=== PATIENT | female | born 1970 | race Two or more races ===

== ENCOUNTER 2017-09-03 12:16 | Outpatient (CLI) | payer MEDICARE, MEDICAID ==
[2017-09-03 12:22] VITALS: BP 157/78
== END 2017-09-03 23:59 | disposition home or self-care (01) ==
LOC: MSC 12:16
PROVIDERS: ATTEND Internal Medicine
DX: Z48.89 Encounter for other specified surgical aftercare (principal); E11.22 Type 2 diabetes mellitus with diabetic chronic kidney disease; I13.2 Hypertensive heart and chronic kidney disease with heart failure and with stage 5 chronic kidney disease, or end stage renal disease; I50.9 Heart failure, unspecified; N18.6 End stage renal disease; Z99.2 Dependence on renal dialysis; D63.8 Anemia in other chronic diseases classified elsewhere; K59.09 Other constipation; Z90.49 Acquired absence of other specified parts of digestive tract; N94.89 Other specified conditions associated with female genital organs and menstrual cycle; G89.29 Other chronic pain

== ENCOUNTER 2018-01-05 12:00 | Outpatient (CLI) | payer MEDICARE, MEDICAID | END 2018-01-05 23:59 | disposition home or self-care (01) | LOC: MSC 12:00 | PROVIDERS: ATTEND Anesthesiology | DX: G89.4 Chronic pain syndrome (principal); R10.2 Pelvic and perineal pain; M54.5 Low back pain; I50.9 Heart failure, unspecified; N18.6 End stage renal disease; Z99.2 Dependence on renal dialysis; I25.10 Atherosclerotic heart disease of native coronary artery without angina pectoris; J90 Pleural effusion, not elsewhere classified; Z98.890 Other specified postprocedural states ==

== ENCOUNTER 2018-01-26 13:00 | Outpatient (CLI) | payer MEDICARE, MEDICAID | END 2018-01-26 23:59 | disposition home or self-care (01) | LOC: MSC 13:00 | PROVIDERS: ATTEND Anesthesiology | DX: G89.4 Chronic pain syndrome (principal); M54.5 Low back pain; R10.2 Pelvic and perineal pain; I50.9 Heart failure, unspecified; I25.10 Atherosclerotic heart disease of native coronary artery without angina pectoris; N18.6 End stage renal disease; Z99.2 Dependence on renal dialysis; Z98.890 Other specified postprocedural states ==

== ENCOUNTER 2018-04-06 11:20 | Outpatient (CLI) | payer MEDICARE, MEDICAID | END 2018-04-06 23:59 | disposition home or self-care (01) | LOC: MSC 11:20 | PROVIDERS: ATTEND Anesthesiology | DX: G89.4 Chronic pain syndrome (principal); M54.5 Low back pain; R10.2 Pelvic and perineal pain; T82.590S Other mechanical complication of surgically created arteriovenous fistula, sequela; N18.6 End stage renal disease; Z99.2 Dependence on renal dialysis; Z79.891 Long term (current) use of opiate analgesic ==

== ENCOUNTER 2018-05-25 12:20 | Outpatient (CLI) | payer MEDICARE, MEDICAID ==
[2018-05-25] MEDS ORDERED: NIFE60TA69 PO (12:29)
[2018-05-25] MEDS ORDERED: INSU100V11 SQ (12:29)
[2018-05-25] MEDS ORDERED: METO25TA20 PO (12:29)
[2018-05-25] MEDS ORDERED: HYDR100T27 PO (12:29)
[2018-05-25] MEDS ORDERED: SEVE800T8 PO (12:29)
[2018-05-25] MEDS ORDERED: GLIM1TAB PO (12:29)
[2018-05-25] MEDS ORDERED: FURO-144 PO (12:29)
[2018-05-25] MEDS ORDERED: ACET-868 PO (12:29)
[2018-05-25] MEDS ORDERED: ASPI-1169 PO (12:29)
[2018-05-25] MEDS ORDERED: HYDR-548 PO (12:29)
[2018-05-25] MEDS ORDERED: DORZ10DR13 EACHEYE (12:30)
[2018-05-25 12:35] VITALS: BP 127/82
== END 2018-05-25 23:59 | disposition home or self-care (01) ==
LOC: MSC 12:20
PROVIDERS: ATTEND Internal Medicine
DX: Z51.89 Encounter for other specified aftercare (principal); D53.9 Nutritional anemia, unspecified; K29.80 Duodenitis without bleeding; K29.70 Gastritis, unspecified, without bleeding; Z86.010 Personal history of colon polyps; E11.22 Type 2 diabetes mellitus with diabetic chronic kidney disease; I13.2 Hypertensive heart and chronic kidney disease with heart failure and with stage 5 chronic kidney disease, or end stage renal disease; I50.32 Chronic diastolic (congestive) heart failure; N18.6 End stage renal disease; Z99.2 Dependence on renal dialysis; Z79.82 Long term (current) use of aspirin; Z79.899 Other long term (current) drug therapy; K59.09 Other constipation; Z90.49 Acquired absence of other specified parts of digestive tract; G89.28 Other chronic postprocedural pain; R10.30 Lower abdominal pain, unspecified; K66.0 Peritoneal adhesions (postprocedural) (postinfection)

== ENCOUNTER 2018-05-25 14:05 | Outpatient (CLI) | payer MEDICARE, MEDICAID ==
[~2018-05-25 14:05] MED LIST: ACET-868 PO; ASPI-1169 PO; DORZ10DR13 EACHEYE; FURO-144 PO; GLIM1TAB PO; HYDR-548 PO; HYDR100T27 PO; INSU100V11 SQ; METO25TA20 PO; NIFE60TA69 PO; SEVE800T8 PO
== END 2018-05-25 23:59 | disposition home or self-care (01) ==
LOC: MSC 14:05
PROVIDERS: ATTEND Anesthesiology
DX: G89.4 Chronic pain syndrome (principal); M54.5 Low back pain; R10.2 Pelvic and perineal pain; T82.590S Other mechanical complication of surgically created arteriovenous fistula, sequela; N18.6 End stage renal disease; Z99.2 Dependence on renal dialysis; I50.9 Heart failure, unspecified; Z79.891 Long term (current) use of opiate analgesic

== ENCOUNTER → 2018-06-22 | Outpatient (CLI) | payer MEDICARE, MEDICAID | END | disposition home or self-care (01) | LOC: MSC 10:45 | PROVIDERS: ATTEND Anesthesiology | DX: M54.5 Low back pain (principal); G89.4 Chronic pain syndrome; R10.2 Pelvic and perineal pain; M25.50 Pain in unspecified joint; N18.6 End stage renal disease; Z99.2 Dependence on renal dialysis; T82.590S Other mechanical complication of surgically created arteriovenous fistula, sequela; I25.10 Atherosclerotic heart disease of native coronary artery without angina pectoris; I50.9 Heart failure, unspecified; Z79.891 Long term (current) use of opiate analgesic ==

== ENCOUNTER 2018-09-14 13:00 | Outpatient (CLI) | payer MEDICARE, MEDICAID ==
[~2018-09-14 13:00] MED LIST changes: +HYDR-4354 PO; -HYDR-548 PO
== END 2018-09-14 23:59 | disposition home or self-care (01) ==
LOC: MSC 13:00
PROVIDERS: ATTEND Anesthesiology
DX: G89.4 Chronic pain syndrome (principal); M54.5 Low back pain; R10.2 Pelvic and perineal pain; T82.590S Other mechanical complication of surgically created arteriovenous fistula, sequela; N18.6 End stage renal disease; Z99.2 Dependence on renal dialysis; Z79.891 Long term (current) use of opiate analgesic

== ENCOUNTER 2018-10-05 13:30 | Outpatient (CLI) | payer MEDICARE, MEDICAID | END 2018-10-05 23:59 | disposition home or self-care (01) | LOC: MSC 13:30 | PROVIDERS: ATTEND Anesthesiology | DX: G89.4 Chronic pain syndrome (principal); R10.2 Pelvic and perineal pain; M54.5 Low back pain; N18.6 End stage renal disease; Z99.2 Dependence on renal dialysis; T82.590S Other mechanical complication of surgically created arteriovenous fistula, sequela; Z79.891 Long term (current) use of opiate analgesic ==

== ENCOUNTER → 2018-11-16 | Outpatient (CLI) | payer MEDICARE, MEDICAID | END | disposition home or self-care (01) | LOC: MSC 13:00 | PROVIDERS: ATTEND Anesthesiology | DX: G89.4 Chronic pain syndrome (principal); R10.2 Pelvic and perineal pain; M54.5 Low back pain; N18.6 End stage renal disease; Z99.2 Dependence on renal dialysis; T82.590S Other mechanical complication of surgically created arteriovenous fistula, sequela; Z79.891 Long term (current) use of opiate analgesic ==

== ENCOUNTER 2018-12-14 11:30 | Outpatient (CLI) | payer MEDICARE, MEDICAID | END 2018-12-14 23:59 | disposition home or self-care (01) | LOC: MSC 11:30 | PROVIDERS: ATTEND Anesthesiology | DX: G89.4 Chronic pain syndrome (principal); M54.5 Low back pain; R10.2 Pelvic and perineal pain; T82.590S Other mechanical complication of surgically created arteriovenous fistula, sequela; N18.6 End stage renal disease; Z99.2 Dependence on renal dialysis; I25.10 Atherosclerotic heart disease of native coronary artery without angina pectoris; I50.9 Heart failure, unspecified; Z79.891 Long term (current) use of opiate analgesic; Z90.49 Acquired absence of other specified parts of digestive tract ==

== ENCOUNTER 2019-01-04 11:30 | Outpatient (CLI) | payer MEDICARE, MEDICAID | END 2019-01-04 23:59 | disposition home or self-care (01) | LOC: MSC 11:30 | PROVIDERS: ATTEND Anesthesiology | DX: G89.4 Chronic pain syndrome (principal); M54.5 Low back pain; R10.2 Pelvic and perineal pain; M25.569 Pain in unspecified knee; N18.6 End stage renal disease; Z99.2 Dependence on renal dialysis; T82.590S Other mechanical complication of surgically created arteriovenous fistula, sequela; Z79.891 Long term (current) use of opiate analgesic ==

== ENCOUNTER 2019-02-08 11:00 | Outpatient (CLI) | payer MEDICARE, MEDICAID | END 2019-02-08 23:59 | disposition home or self-care (01) | LOC: MSC 11:00 | PROVIDERS: ATTEND Anesthesiology | DX: G89.4 Chronic pain syndrome (principal); T82.590S Other mechanical complication of surgically created arteriovenous fistula, sequela; R10.2 Pelvic and perineal pain; N18.6 End stage renal disease; Z99.2 Dependence on renal dialysis; I50.9 Heart failure, unspecified; I25.10 Atherosclerotic heart disease of native coronary artery without angina pectoris; Z79.891 Long term (current) use of opiate analgesic ==

== ENCOUNTER 2019-03-15 10:30 | Outpatient (CLI) | payer MEDICARE, MEDICAID | END 2019-03-15 23:59 | disposition home or self-care (01) | LOC: MSC 10:30 | PROVIDERS: ATTEND Anesthesiology | DX: G89.4 Chronic pain syndrome (principal); M54.5 Low back pain; R10.2 Pelvic and perineal pain; N18.6 End stage renal disease; Z99.2 Dependence on renal dialysis; T82.590S Other mechanical complication of surgically created arteriovenous fistula, sequela; Z86.79 Personal history of other diseases of the circulatory system; Z79.891 Long term (current) use of opiate analgesic ==

== ENCOUNTER 2019-04-19 09:00 | Outpatient (CLI) | payer MEDICARE, MEDICAID | END 2019-04-19 23:59 | disposition home or self-care (01) | LOC: MSC 09:00 | PROVIDERS: ATTEND Anesthesiology | DX: G89.4 Chronic pain syndrome (principal); M54.5 Low back pain; R10.2 Pelvic and perineal pain; N18.6 End stage renal disease; Z99.2 Dependence on renal dialysis; T82.590S Other mechanical complication of surgically created arteriovenous fistula, sequela; Z86.79 Personal history of other diseases of the circulatory system; I50.9 Heart failure, unspecified; Z79.891 Long term (current) use of opiate analgesic ==

== ENCOUNTER 2019-05-10 09:30 | Outpatient (CLI) | payer MEDICARE, MEDICAID | END 2019-05-10 23:59 | disposition home or self-care (01) | LOC: MSC 09:30 | PROVIDERS: ATTEND Anesthesiology | DX: G89.4 Chronic pain syndrome (principal); M54.5 Low back pain; R10.2 Pelvic and perineal pain; N18.6 End stage renal disease; Z99.2 Dependence on renal dialysis; T82.590S Other mechanical complication of surgically created arteriovenous fistula, sequela; Z79.899 Other long term (current) drug therapy ==

== ENCOUNTER 2019-06-07 08:30 | Outpatient (CLI) | payer MEDICARE, MEDICAID | END 2019-06-07 23:59 | disposition home or self-care (01) | LOC: MSC 08:30 | PROVIDERS: ATTEND Anesthesiology | DX: G89.4 Chronic pain syndrome (principal); M54.5 Low back pain; R10.2 Pelvic and perineal pain; N18.6 End stage renal disease; Z99.2 Dependence on renal dialysis; T82.590S Other mechanical complication of surgically created arteriovenous fistula, sequela; I25.10 Atherosclerotic heart disease of native coronary artery without angina pectoris; I50.9 Heart failure, unspecified; Z79.891 Long term (current) use of opiate analgesic; Z79.899 Other long term (current) drug therapy ==

== ENCOUNTER → 2019-07-26 | Outpatient (CLI) | payer MEDICARE, MEDICAID | END | disposition home or self-care (01) | LOC: MSC 14:10 | PROVIDERS: ATTEND Anesthesiology | DX: G89.4 Chronic pain syndrome (principal); M54.5 Low back pain; R10.2 Pelvic and perineal pain; N18.6 End stage renal disease; Z99.2 Dependence on renal dialysis; T82.590S Other mechanical complication of surgically created arteriovenous fistula, sequela; Z79.891 Long term (current) use of opiate analgesic ==

== ENCOUNTER → 2019-08-23 | Outpatient (CLI) | payer MEDICARE, MEDICAID | END | disposition home or self-care (01) | LOC: MSC 08:25 | PROVIDERS: ATTEND Anesthesiology | DX: M54.9 Dorsalgia, unspecified (principal); G89.4 Chronic pain syndrome; R53.83 Other fatigue; R10.2 Pelvic and perineal pain; N18.6 End stage renal disease; Z99.2 Dependence on renal dialysis; T82.590S Other mechanical complication of surgically created arteriovenous fistula, sequela; Z79.899 Other long term (current) drug therapy ==

== ENCOUNTER → 2019-09-13 | Outpatient (CLI) | payer MEDICARE, MEDICAID ==
[~2019-09-13] MED LIST changes: +NIFE-34 PO; -NIFE60TA69 PO
== END | disposition home or self-care (01) ==
LOC: MSC 09:35
PROVIDERS: ATTEND Anesthesiology
DX: M47.816 Spondylosis without myelopathy or radiculopathy, lumbar region (principal); M62.830 Muscle spasm of back; M40.299 Other kyphosis, site unspecified; G89.4 Chronic pain syndrome; R10.2 Pelvic and perineal pain; N18.6 End stage renal disease; Z99.2 Dependence on renal dialysis; T82.590S Other mechanical complication of surgically created arteriovenous fistula, sequela; Z79.891 Long term (current) use of opiate analgesic; Z79.899 Other long term (current) drug therapy

== ENCOUNTER → 2019-11-22 | Outpatient (CLI) | payer MEDICARE, MEDICAID | END | disposition home or self-care (01) | LOC: MSC 08:20 | PROVIDERS: ATTEND Anesthesiology | DX: M47.816 Spondylosis without myelopathy or radiculopathy, lumbar region (principal); M62.830 Muscle spasm of back; M40.299 Other kyphosis, site unspecified; G89.4 Chronic pain syndrome; R10.2 Pelvic and perineal pain; T82.590S Other mechanical complication of surgically created arteriovenous fistula, sequela; N18.6 End stage renal disease; Z99.2 Dependence on renal dialysis; Z79.891 Long term (current) use of opiate analgesic; Z79.899 Other long term (current) drug therapy ==

== ENCOUNTER → 2020-02-28 | Outpatient (CLI) | payer MEDICARE, MEDICAID | END | disposition home or self-care (01) | LOC: MSC 10:05 | PROVIDERS: ATTEND Anesthesiology | DX: M47.816 Spondylosis without myelopathy or radiculopathy, lumbar region (principal); M62.830 Muscle spasm of back; M40.299 Other kyphosis, site unspecified; G89.4 Chronic pain syndrome; R07.9 Chest pain, unspecified; M25.569 Pain in unspecified knee; R10.2 Pelvic and perineal pain; N18.6 End stage renal disease; Z99.2 Dependence on renal dialysis; Z79.891 Long term (current) use of opiate analgesic; Z79.899 Other long term (current) drug therapy ==

== ENCOUNTER 2020-04-17 08:15 | Outpatient (CLI) | payer MEDICARE, MEDICAID | END 2020-04-17 23:59 | disposition home or self-care (01) | LOC: MSC 08:15 | PROVIDERS: ATTEND Anesthesiology | DX: M47.816 Spondylosis without myelopathy or radiculopathy, lumbar region (principal); M62.830 Muscle spasm of back; M40.299 Other kyphosis, site unspecified; G89.4 Chronic pain syndrome; R10.2 Pelvic and perineal pain; N18.6 End stage renal disease; Z99.2 Dependence on renal dialysis; Z86.79 Personal history of other diseases of the circulatory system; Z79.891 Long term (current) use of opiate analgesic; Z79.899 Other long term (current) drug therapy | CPT/HCPCS: 82962; G0463 ==

== ENCOUNTER → 2020-06-12 | Outpatient (CLI) | payer MEDICARE, MEDICAID | END | disposition home or self-care (01) | LOC: MSC 08:11 | PROVIDERS: ATTEND Anesthesiology | DX: M47.816 Spondylosis without myelopathy or radiculopathy, lumbar region (principal); M62.830 Muscle spasm of back; M40.299 Other kyphosis, site unspecified; G89.4 Chronic pain syndrome; R10.2 Pelvic and perineal pain; N18.6 End stage renal disease; Z99.2 Dependence on renal dialysis; T82.590S Other mechanical complication of surgically created arteriovenous fistula, sequela; Z79.891 Long term (current) use of opiate analgesic ==

== ENCOUNTER 2020-07-03 08:20 | Outpatient (CLI) | payer MEDICARE, MEDICAID | END 2020-07-03 23:59 | disposition home or self-care (01) | LOC: MSC 08:20 | PROVIDERS: ATTEND Anesthesiology | DX: M47.816 Spondylosis without myelopathy or radiculopathy, lumbar region (principal); M62.830 Muscle spasm of back; M40.299 Other kyphosis, site unspecified; G89.4 Chronic pain syndrome; R10.2 Pelvic and perineal pain; N18.6 End stage renal disease; Z99.2 Dependence on renal dialysis; T82.590S Other mechanical complication of surgically created arteriovenous fistula, sequela; Z79.891 Long term (current) use of opiate analgesic ==

== ENCOUNTER → 2020-08-07 | Outpatient (CLI) | payer MEDICARE, MEDICAID | END | disposition home or self-care (01) | LOC: MSC 08:20 | PROVIDERS: ATTEND Anesthesiology | DX: M47.816 Spondylosis without myelopathy or radiculopathy, lumbar region (principal); M62.830 Muscle spasm of back; M40.299 Other kyphosis, site unspecified; G89.4 Chronic pain syndrome; R10.2 Pelvic and perineal pain; T82.590S Other mechanical complication of surgically created arteriovenous fistula, sequela; N18.6 End stage renal disease; Z99.2 Dependence on renal dialysis; Z86.79 Personal history of other diseases of the circulatory system; I50.9 Heart failure, unspecified; Z79.891 Long term (current) use of opiate analgesic ==

== ENCOUNTER 2020-09-04 08:29 | Outpatient (CLI) | payer MEDICARE, MEDICAID | END 2020-09-04 23:59 | disposition home or self-care (01) | LOC: MSC 08:29 | PROVIDERS: ATTEND Anesthesiology | DX: M47.816 Spondylosis without myelopathy or radiculopathy, lumbar region (principal); M62.830 Muscle spasm of back; M40.299 Other kyphosis, site unspecified; G89.4 Chronic pain syndrome; R10.2 Pelvic and perineal pain; N18.6 End stage renal disease; Z99.2 Dependence on renal dialysis; T82.590S Other mechanical complication of surgically created arteriovenous fistula, sequela; Z79.891 Long term (current) use of opiate analgesic ==

== ENCOUNTER 2020-10-02 08:25 | Outpatient (CLI) | payer MEDICARE, MEDICAID | END 2020-10-02 23:59 | disposition home or self-care (01) | LOC: MSC 08:25 | PROVIDERS: ATTEND Anesthesiology | DX: M47.816 Spondylosis without myelopathy or radiculopathy, lumbar region (principal); M62.830 Muscle spasm of back; M40.299 Other kyphosis, site unspecified; G89.4 Chronic pain syndrome; R10.2 Pelvic and perineal pain; N18.6 End stage renal disease; Z99.2 Dependence on renal dialysis; T82.590S Other mechanical complication of surgically created arteriovenous fistula, sequela; Z79.891 Long term (current) use of opiate analgesic ==

== ENCOUNTER 2020-10-30 08:32 | Outpatient (CLI) | payer MEDICARE, MEDICAID | END 2020-10-30 23:59 | disposition home or self-care (01) | LOC: MSC 08:32 | PROVIDERS: ATTEND Anesthesiology | DX: M47.816 Spondylosis without myelopathy or radiculopathy, lumbar region (principal); M62.830 Muscle spasm of back; M40.299 Other kyphosis, site unspecified; G89.4 Chronic pain syndrome; R10.2 Pelvic and perineal pain; N18.6 End stage renal disease; Z99.2 Dependence on renal dialysis; T82.590S Other mechanical complication of surgically created arteriovenous fistula, sequela; Z79.891 Long term (current) use of opiate analgesic ==

== ENCOUNTER 2020-11-27 08:31 | Outpatient (CLI) | payer MEDICARE, OTHER | END 2020-11-27 23:59 | disposition home or self-care (01) | LOC: MSC 08:31 | PROVIDERS: ATTEND Anesthesiology | DX: M47.816 Spondylosis without myelopathy or radiculopathy, lumbar region (principal); M62.830 Muscle spasm of back; M40.299 Other kyphosis, site unspecified; G89.4 Chronic pain syndrome; R10.2 Pelvic and perineal pain; N18.6 End stage renal disease; Z99.2 Dependence on renal dialysis; T82.590S Other mechanical complication of surgically created arteriovenous fistula, sequela; Z76.0 Encounter for issue of repeat prescription; Z79.891 Long term (current) use of opiate analgesic; Z79.899 Other long term (current) drug therapy ==

== ENCOUNTER 2020-12-25 08:42 | Outpatient (CLI) | payer MEDICARE, OTHER | END 2020-12-25 23:59 | disposition home or self-care (01) | LOC: MSC 08:42 | PROVIDERS: ATTEND Anesthesiology | DX: G89.4 Chronic pain syndrome (principal); Z76.0 Encounter for issue of repeat prescription; M47.816 Spondylosis without myelopathy or radiculopathy, lumbar region; M62.830 Muscle spasm of back; M40.299 Other kyphosis, site unspecified; Z79.899 Other long term (current) drug therapy; R10.2 Pelvic and perineal pain; Z98.42 Cataract extraction status, left eye; Z90.49 Acquired absence of other specified parts of digestive tract; N18.6 End stage renal disease; Z99.2 Dependence on renal dialysis ==

== ENCOUNTER → 2021-02-12 | Outpatient (CLI) | payer MEDICARE, OTHER | END | disposition home or self-care (01) | LOC: MSC 08:20 | PROVIDERS: ATTEND Anesthesiology | DX: G89.4 Chronic pain syndrome (principal); M47.816 Spondylosis without myelopathy or radiculopathy, lumbar region; R10.2 Pelvic and perineal pain; M62.830 Muscle spasm of back; M40.299 Other kyphosis, site unspecified; N18.6 End stage renal disease; Z99.2 Dependence on renal dialysis; T82.590S Other mechanical complication of surgically created arteriovenous fistula, sequela; Z79.891 Long term (current) use of opiate analgesic; Z79.82 Long term (current) use of aspirin; Z79.899 Other long term (current) drug therapy ==

== ENCOUNTER 2021-03-19 08:20 | Outpatient (CLI) | payer MEDICARE, OTHER | END 2021-03-19 23:59 | disposition home or self-care (01) | LOC: MSC 08:20 | PROVIDERS: ATTEND Anesthesiology | DX: G89.4 Chronic pain syndrome (principal); M45.4 Ankylosing spondylitis of thoracic region; Z76.0 Encounter for issue of repeat prescription; M47.816 Spondylosis without myelopathy or radiculopathy, lumbar region; N18.6 End stage renal disease; Z99.2 Dependence on renal dialysis; R03.0 Elevated blood-pressure reading, without diagnosis of hypertension; Z79.899 Other long term (current) drug therapy ==

== ENCOUNTER 2021-04-23 10:00 | Outpatient (CLI) | payer MEDICARE, OTHER | END 2021-04-23 23:59 | disposition home or self-care (01) | LOC: MSC 10:00 | PROVIDERS: ATTEND Anesthesiology | DX: M47.816 Spondylosis without myelopathy or radiculopathy, lumbar region (principal); G89.4 Chronic pain syndrome; R10.2 Pelvic and perineal pain; M62.830 Muscle spasm of back; M40.299 Other kyphosis, site unspecified; N18.6 End stage renal disease; Z99.2 Dependence on renal dialysis; T82.590S Other mechanical complication of surgically created arteriovenous fistula, sequela; Z79.891 Long term (current) use of opiate analgesic ==

== ENCOUNTER 2021-05-28 08:52 | Outpatient (CLI) | payer MEDICARE, OTHER | END 2021-05-28 23:59 | disposition home or self-care (01) | LOC: MSC 08:52 | PROVIDERS: ATTEND Anesthesiology | DX: G89.4 Chronic pain syndrome (principal); M47.816 Spondylosis without myelopathy or radiculopathy, lumbar region; M62.830 Muscle spasm of back; M40.299 Other kyphosis, site unspecified; R10.2 Pelvic and perineal pain; N18.6 End stage renal disease; Z99.2 Dependence on renal dialysis; T82.590S Other mechanical complication of surgically created arteriovenous fistula, sequela; Z79.891 Long term (current) use of opiate analgesic; Z79.82 Long term (current) use of aspirin ==

== ENCOUNTER 2021-06-25 09:01 | Outpatient (CLI) | payer MEDICARE, OTHER | END 2021-06-25 23:59 | disposition home or self-care (01) | LOC: MSC 09:01 | PROVIDERS: ATTEND Anesthesiology | DX: M47.816 Spondylosis without myelopathy or radiculopathy, lumbar region (principal); M62.830 Muscle spasm of back; M40.299 Other kyphosis, site unspecified; G89.4 Chronic pain syndrome; R10.2 Pelvic and perineal pain; N18.6 End stage renal disease; Z99.2 Dependence on renal dialysis; T82.590S Other mechanical complication of surgically created arteriovenous fistula, sequela; Z79.891 Long term (current) use of opiate analgesic; Z79.899 Other long term (current) drug therapy ==

== ENCOUNTER → 2021-07-23 | Outpatient (CLI) | payer MEDICARE, OTHER | END | disposition home or self-care (01) | LOC: MSC 09:30 | PROVIDERS: ATTEND Anesthesiology | DX: G89.4 Chronic pain syndrome (principal); M47.816 Spondylosis without myelopathy or radiculopathy, lumbar region; R10.2 Pelvic and perineal pain; M62.830 Muscle spasm of back; M40.299 Other kyphosis, site unspecified; N18.6 End stage renal disease; Z99.2 Dependence on renal dialysis; T82.590S Other mechanical complication of surgically created arteriovenous fistula, sequela; Z79.891 Long term (current) use of opiate analgesic; Z79.82 Long term (current) use of aspirin ==

== ENCOUNTER 2021-08-20 08:56 | Outpatient (CLI) | payer MEDICARE, OTHER | END 2021-08-20 23:59 | disposition home or self-care (01) | LOC: MSC 08:56 | PROVIDERS: ATTEND Anesthesiology | DX: G89.4 Chronic pain syndrome (principal); M47.816 Spondylosis without myelopathy or radiculopathy, lumbar region; R10.2 Pelvic and perineal pain; M62.830 Muscle spasm of back; M40.299 Other kyphosis, site unspecified; N18.6 End stage renal disease; Z99.2 Dependence on renal dialysis; T82.590S Other mechanical complication of surgically created arteriovenous fistula, sequela; Z79.891 Long term (current) use of opiate analgesic; Z79.82 Long term (current) use of aspirin; Z79.899 Other long term (current) drug therapy ==

== ENCOUNTER 2021-09-17 08:50 | Outpatient (CLI) | payer MEDICARE, OTHER | END 2021-09-17 23:59 | disposition home or self-care (01) | LOC: MSC 08:50 | PROVIDERS: ATTEND Anesthesiology | DX: M47.816 Spondylosis without myelopathy or radiculopathy, lumbar region (principal); M62.830 Muscle spasm of back; M40.299 Other kyphosis, site unspecified; G89.4 Chronic pain syndrome; R10.2 Pelvic and perineal pain; N18.6 End stage renal disease; Z99.2 Dependence on renal dialysis; T82.590S Other mechanical complication of surgically created arteriovenous fistula, sequela; Z79.891 Long term (current) use of opiate analgesic ==

== ENCOUNTER 2021-10-22 08:45 | Outpatient (CLI) | payer MEDICARE, OTHER | END 2021-10-22 23:59 | disposition home or self-care (01) | LOC: MSC 08:45 | PROVIDERS: ATTEND Anesthesiology | DX: M47.816 Spondylosis without myelopathy or radiculopathy, lumbar region (principal); M62.830 Muscle spasm of back; M40.299 Other kyphosis, site unspecified; G89.4 Chronic pain syndrome; R10.2 Pelvic and perineal pain; N18.6 End stage renal disease; Z99.2 Dependence on renal dialysis; T82.590S Other mechanical complication of surgically created arteriovenous fistula, sequela; Z79.891 Long term (current) use of opiate analgesic; Z79.899 Other long term (current) drug therapy; Z79.82 Long term (current) use of aspirin ==

== ENCOUNTER 2021-10-24 08:55 | Outpatient (CLI) | payer MEDICARE, OTHER | END 2021-10-24 23:59 | disposition home or self-care (01) | LOC: MSC 08:55 | PROVIDERS: ATTEND Internal Medicine | DX: M25.462 Effusion, left knee (principal); K29.70 Gastritis, unspecified, without bleeding; I12.0 Hypertensive chronic kidney disease with stage 5 chronic kidney disease or end stage renal disease; E11.22 Type 2 diabetes mellitus with diabetic chronic kidney disease; N18.6 End stage renal disease; Z99.2 Dependence on renal dialysis; Z79.4 Long term (current) use of insulin; M54.50 Low back pain, unspecified ==

== ENCOUNTER 2021-10-28 09:08 | Outpatient (CLI) | payer MEDICARE, OTHER ==
[2021-10-28 09:48] LABS: BASOPHILS % (AUTO) 0.4 % (0.0-2.0); EOSINOPHILS % (AUTO) 1.2 % (0.0-6.0); HEMATOCRIT 39 % (33-45); HEMOGLOBIN 12.7 g/dL (11.5-14.8); LYMPHOCYTES # (AUTO) 0.8 K/uL (0.8-4.8); LYMPHOCYTES % (AUTO) 25.4 % (20.0-44.0); MEAN CORPUSCULAR HGB CONC 33 g/dl (31.0-36.0); MEAN CORPUSCULAR VOLUME 94 fL (82-100); MONOCYTES # (AUTO) 0.2 K/uL (0.1-1.30); MONOCYTES % (AUTO) 7.5 % (2.0-12.0); NEUTROPHILS % (AUTO) 65.5 % (43.0-81.0); PLATELET COUNT (AUTO) 138 K/uL (150-450); RED BLOOD CELL COUNT(AUTO) 4.11 MIL/uL (4.0-5.2)
[2021-10-28 10:12] LABS: CHOLESTEROL 172 mg/dL (<200); HDL CHOLESTEROL 85 mg/dL (40-60); LDL 64 mg/dL (0-99); THYROID STIMULATING HORMONE 2.474 uIU/mL (0.358-3.74); TRIGLYCERIDES 108 mg/dL (30-150)
[2021-10-28 10:16] LABS: C-REACTIVE PROTEIN < 0.2 mg/dL (0.0-0.9)
[2021-10-28 10:26] LABS: ALANINE AMINOTRANSFERASE 9 U/L (12-78); ALBUMIN 3.5 g/dL (3.4-5.0); ALKALINE PHOSPHATASE 142 U/L (46-116); ASPARTATE AMINOTRANSFERASE 15 U/L (15-37); BILIRUBIN,TOTAL 0.5 mg/dL (0.2-1.0); CALCIUM, SERUM 8.5 mg/dL (8.5-10.1); CARBON DIOXIDE 27 mmol/L (21-32); CHLORIDE 94 mmol/L (98-107); CREATININE 5.7 mg/dL (0.6-1.3); GLUCOSE 192 mg/dL (74-106); MAGNESIUM 2.4 mg/dL (1.8-2.4); PHOSPHORUS 5.9 mg/dL (2.5-4.9); POTASSIUM 4.4 mmol/L (3.5-5.1); SODIUM SERUM 131 mmol/L (136-145); TOTAL PROTEIN, SERUM 8.5 g/dL (6.4-8.2); UREA NITROGEN, BLOOD 42 mg/dL (7-18)
== END 2021-10-28 23:59 | disposition home or self-care (01) ==
LOC: LAB 09:08
PROVIDERS: ATTEND Internal Medicine
DX: I10 Essential (primary) hypertension (principal); E11.9 Type 2 diabetes mellitus without complications; M17.12 Unilateral primary osteoarthritis, left knee
CPT/HCPCS: 36415; 73564-TC; 80053-TC; 80061-TC; 82306; 82607-TC; 83735-TC; 84100-TC; 84439-TC; 84443-TC; 85025-TC; 85652-TC; 86140-TC

== ENCOUNTER 2021-10-30 11:52 | Outpatient (CLI) | payer MEDICARE, OTHER | END 2021-10-30 23:59 | disposition home or self-care (01) | LOC: MRI 11:52 | PROVIDERS: ATTEND Internal Medicine | DX: M17.12 Unilateral primary osteoarthritis, left knee (principal); M25.462 Effusion, left knee; M71.22 Synovial cyst of popliteal space [Baker], left knee | CPT/HCPCS: 73721-TC ==

== ENCOUNTER 2021-11-12 08:59 | Outpatient (CLI) | payer MEDICARE, OTHER | END 2021-11-12 23:59 | disposition home or self-care (01) | LOC: MSC 08:59 | PROVIDERS: ATTEND Anesthesiology | DX: G89.4 Chronic pain syndrome (principal); M47.816 Spondylosis without myelopathy or radiculopathy, lumbar region; M62.830 Muscle spasm of back; M40.299 Other kyphosis, site unspecified; R10.2 Pelvic and perineal pain; Z79.891 Long term (current) use of opiate analgesic; N18.6 End stage renal disease; Z99.2 Dependence on renal dialysis; T82.590S Other mechanical complication of surgically created arteriovenous fistula, sequela; Z79.82 Long term (current) use of aspirin ==

== ENCOUNTER 2021-12-24 11:20 | Outpatient (CLI) | payer MEDICARE, OTHER | END 2021-12-24 23:59 | disposition home or self-care (01) | LOC: MSC 11:20 | PROVIDERS: ATTEND Anesthesiology | DX: G89.4 Chronic pain syndrome (principal); M47.816 Spondylosis without myelopathy or radiculopathy, lumbar region; M62.830 Muscle spasm of back; M40.299 Other kyphosis, site unspecified; R10.2 Pelvic and perineal pain; Z79.891 Long term (current) use of opiate analgesic; N18.6 End stage renal disease; Z99.2 Dependence on renal dialysis; T82.590S Other mechanical complication of surgically created arteriovenous fistula, sequela; Z79.82 Long term (current) use of aspirin; Z79.899 Other long term (current) drug therapy | CPT/HCPCS: 82962; G0463 ==

== ENCOUNTER 2022-02-18 09:05 | Outpatient (CLI) | payer MEDICARE, OTHER | END 2022-02-18 23:59 | disposition home or self-care (01) | LOC: MSC 09:05 | PROVIDERS: ATTEND Internal Medicine | DX: M25.462 Effusion, left knee (principal); M25.461 Effusion, right knee; K29.70 Gastritis, unspecified, without bleeding; E11.22 Type 2 diabetes mellitus with diabetic chronic kidney disease; I12.0 Hypertensive chronic kidney disease with stage 5 chronic kidney disease or end stage renal disease; N18.6 End stage renal disease; Z99.2 Dependence on renal dialysis; Z79.4 Long term (current) use of insulin; M54.50 Low back pain, unspecified; Z87.440 Personal history of urinary (tract) infections | CPT/HCPCS: 80053; 82607; 83036; 83735; 84100; 84550; 85025; 85652; 86038; 86140; 86200; 86431; G0463; 36415 ==

== ENCOUNTER 2022-02-18 09:30 | Outpatient (CLI) | payer MEDICARE, OTHER ==
[2022-02-18 10:43] LABS: BASOPHILS % (AUTO) 0.3 % (0.0-2.0); EOSINOPHILS % (AUTO) 1.5 % (0.0-6.0); HEMATOCRIT 31 % (33-45); HEMOGLOBIN 10.2 g/dL (11.5-14.8); LYMPHOCYTES # (AUTO) 0.7 K/uL (0.8-4.8); LYMPHOCYTES % (AUTO) 20.1 % (20.0-44.0); MEAN CORPUSCULAR HGB CONC 33 g/dl (31.0-36.0); MEAN CORPUSCULAR VOLUME 94 fL (82-100); MONOCYTES # (AUTO) 0.3 K/uL (0.1-1.30); MONOCYTES % (AUTO) 8.1 % (2.0-12.0); NEUTROPHILS # (AUTO) 2.6 K/uL (1.8-8.9); PLATELET COUNT (AUTO) 128 K/uL (150-450); RED BLOOD CELL COUNT(AUTO) 3.32 MIL/uL (4.0-5.2); WHITE BLOOD COUNT (AUTO) 3.7 K/uL (4.3-11.0)
[2022-02-18 11:23] LABS: ALANINE AMINOTRANSFERASE 9 U/L (12-78); ALBUMIN 3.2 g/dL (3.4-5.0); ALKALINE PHOSPHATASE 114 U/L (46-116); ASPARTATE AMINOTRANSFERASE 17 U/L (15-37); BILIRUBIN,TOTAL 0.5 mg/dL (0.2-1.0); CALCIUM, SERUM 8.6 mg/dL (8.5-10.1); CARBON DIOXIDE 26 mmol/L (21-32); CHLORIDE 96 mmol/L (98-107); CREATININE 6.6 mg/dL (0.6-1.3); GLUCOSE 206 mg/dL (74-106); MAGNESIUM 2.4 mg/dL (1.8-2.4); PHOSPHORUS 6.4 mg/dL (2.5-4.9); POTASSIUM 5.3 mmol/L (3.5-5.1); SODIUM SERUM 133 mmol/L (136-145); TOTAL PROTEIN, SERUM 7.3 g/dL (6.4-8.2); UREA NITROGEN, BLOOD 55 mg/dL (7-18)
[2022-02-18 14:16] LABS: URIC ACID 6.1 mg/dL (2.6-7.2)
[2022-02-18 14:50] LABS: C-REACTIVE PROTEIN < 0.2 mg/dL (0.0-0.9)
[2022-02-21 21:06] LABS: CCP IgG/IgA AB 4 units (0-19)
== END 2022-02-18 23:59 | disposition home or self-care (01) ==
LOC: MSC 09:30
PROVIDERS: ATTEND Anesthesiology
DX: M47.816 Spondylosis without myelopathy or radiculopathy, lumbar region (principal); M62.830 Muscle spasm of back; M40.299 Other kyphosis, site unspecified; G89.4 Chronic pain syndrome; R10.2 Pelvic and perineal pain; N18.6 End stage renal disease; Z99.2 Dependence on renal dialysis; T82.590S Other mechanical complication of surgically created arteriovenous fistula, sequela; Z79.891 Long term (current) use of opiate analgesic; Z79.82 Long term (current) use of aspirin; Z79.899 Other long term (current) drug therapy
CPT/HCPCS: 36415; 80053-TC; 82607-TC; 83735-TC; 84100-TC; 84550-TC; 85025-TC; 85652-TC; 86140-TC; 86200; 86431-TC

== ENCOUNTER 2022-03-25 08:22 | Outpatient (CLI) | payer MEDICARE, OTHER | END 2022-03-25 23:59 | disposition home or self-care (01) | LOC: MSC 08:22 | PROVIDERS: ATTEND Anesthesiology | DX: M47.816 Spondylosis without myelopathy or radiculopathy, lumbar region (principal); M62.830 Muscle spasm of back; M40.299 Other kyphosis, site unspecified; G89.4 Chronic pain syndrome; R10.2 Pelvic and perineal pain; N18.6 End stage renal disease; Z99.2 Dependence on renal dialysis; T82.590S Other mechanical complication of surgically created arteriovenous fistula, sequela; Z79.891 Long term (current) use of opiate analgesic; Z79.82 Long term (current) use of aspirin; Z79.899 Other long term (current) drug therapy ==

== ENCOUNTER → 2022-04-15 | Outpatient (CLI) | payer MEDICARE, OTHER | END | disposition home or self-care (01) | LOC: MSC 13:00 | PROVIDERS: ATTEND Anesthesiology | DX: G89.4 Chronic pain syndrome (principal); M47.816 Spondylosis without myelopathy or radiculopathy, lumbar region; M62.830 Muscle spasm of back; M40.299 Other kyphosis, site unspecified; R10.2 Pelvic and perineal pain; N18.6 End stage renal disease; Z99.2 Dependence on renal dialysis; T82.590S Other mechanical complication of surgically created arteriovenous fistula, sequela; Z79.891 Long term (current) use of opiate analgesic; Z79.82 Long term (current) use of aspirin; Z79.899 Other long term (current) drug therapy ==

== ENCOUNTER 2022-05-01 09:08 | Outpatient (CLI) | payer MEDICARE, OTHER | END 2022-05-01 23:59 | disposition home or self-care (01) | LOC: MSC 09:08 | PROVIDERS: ATTEND Internal Medicine | DX: N39.0 Urinary tract infection, site not specified (principal); M25.462 Effusion, left knee; M25.461 Effusion, right knee; K29.70 Gastritis, unspecified, without bleeding; E11.22 Type 2 diabetes mellitus with diabetic chronic kidney disease; I12.0 Hypertensive chronic kidney disease with stage 5 chronic kidney disease or end stage renal disease; N18.6 End stage renal disease; Z99.2 Dependence on renal dialysis; Z79.4 Long term (current) use of insulin; M54.50 Low back pain, unspecified ==

== ENCOUNTER 2022-05-02 09:57 | Outpatient (CLI) | payer MEDICARE, OTHER ==
[2022-05-02 10:39] LABS: BASOPHILS % (AUTO) 0.4 % (0.0-2.0); EOSINOPHILS % (AUTO) 1.3 % (0.0-6.0); HEMATOCRIT 35 % (33-45); HEMOGLOBIN 11.3 g/dL (11.5-14.8); LYMPHOCYTES # (AUTO) 0.9 K/uL (0.8-4.8); LYMPHOCYTES % (AUTO) 21.3 % (20.0-44.0); MEAN CORPUSCULAR HGB CONC 33 g/dl (31.0-36.0); MEAN CORPUSCULAR VOLUME 94 fL (82-100); MONOCYTES # (AUTO) 0.3 K/uL (0.1-1.30); MONOCYTES % (AUTO) 7.8 % (2.0-12.0); NEUTROPHILS # (AUTO) 2.9 K/uL (1.8-8.9); NEUTROPHILS % (AUTO) 69.2 % (43.0-81.0); PLATELET COUNT (AUTO) 137 K/uL (150-450); RED BLOOD CELL COUNT(AUTO) 3.68 MIL/uL (4.0-5.2); WHITE BLOOD COUNT (AUTO) 4.2 K/uL (4.3-11.0)
[2022-05-02 10:42] LABS: BILIRUBIN,URINE NEGATIVE (NEGATIVE); COLOR,URINE YELLOW (YELLOW); LEUKOCYTE ESTERASE ,URINE NEGATIVE (NEGATIVE); NITRITE, URINE NEGATIVE (NEGATIVE); PH,URINE 8.5 (5.0-8.0); PROTEIN,URINE 100 mg/dl (NEGATIVE); UGLUCOSE NEGATIVE (NEGATIVE); UROBILINOGEN,URINE 0.2 EU/dL (0.2)
[2022-05-02 10:54] LABS: BACTERIA,URINE Rare /HPF (None Seen); MUCUS,URINE Few /LPF (None Seen); RBC,URINE 0-2 /HPF (0-2); SQUAMOUS EPITHELIAL CELL,UR Few /HPF (None Seen)
[2022-05-02 10:57] LABS: URINE TOTAL PROTEIN 171.2 mg/dL (0-11.9)
[2022-05-02 10:59] LABS: C-REACTIVE PROTEIN 0.2 mg/dL (0.0-0.9)
[2022-05-02 11:03] LABS: BILIRUBIN,TOTAL 0.6 mg/dL (0.2-1.0); CALCIUM, SERUM 9.2 mg/dL (8.5-10.1); CREATININE 5.1 mg/dL (0.6-1.3); TOTAL PROTEIN, SERUM 8.9 g/dL (6.4-8.2)
== END 2022-05-02 23:59 | disposition home or self-care (01) ==
LOC: LAB 09:57
PROVIDERS: ATTEND Internal Medicine
DX: J90 Pleural effusion, not elsewhere classified (principal); J98.11 Atelectasis; R07.9 Chest pain, unspecified; U09.9 Post COVID-19 condition, unspecified; N39.0 Urinary tract infection, site not specified; R06.02 Shortness of breath
CPT/HCPCS: 36415; 71046; 80053-TC; 81001; 84155-TC; 85025-TC; 85652-TC; 86140-TC; 87086-TC

== ENCOUNTER 2022-05-06 13:00 | Outpatient (CLI) | payer MEDICARE, OTHER | END 2022-05-06 23:59 | disposition home or self-care (01) | LOC: MSC 13:00 | PROVIDERS: ATTEND Anesthesiology | DX: M47.816 Spondylosis without myelopathy or radiculopathy, lumbar region (principal); M62.830 Muscle spasm of back; M40.299 Other kyphosis, site unspecified; G89.4 Chronic pain syndrome; R10.2 Pelvic and perineal pain; Z79.891 Long term (current) use of opiate analgesic; N18.6 End stage renal disease; Z99.2 Dependence on renal dialysis; T82.590S Other mechanical complication of surgically created arteriovenous fistula, sequela; Z79.82 Long term (current) use of aspirin; Z79.899 Other long term (current) drug therapy ==

== ENCOUNTER → 2022-05-07 | Outpatient (CLI) | payer MEDICARE, OTHER | END | disposition home or self-care (01) | LOC: MSC 13:30 | PROVIDERS: ATTEND Internal Medicine | DX: J90 Pleural effusion, not elsewhere classified (principal); N39.0 Urinary tract infection, site not specified; E11.22 Type 2 diabetes mellitus with diabetic chronic kidney disease; I12.0 Hypertensive chronic kidney disease with stage 5 chronic kidney disease or end stage renal disease; N18.6 End stage renal disease; Z99.2 Dependence on renal dialysis; Z79.4 Long term (current) use of insulin; M25.462 Effusion, left knee; M25.461 Effusion, right knee; K29.70 Gastritis, unspecified, without bleeding; M54.50 Low back pain, unspecified ==

== ENCOUNTER 2022-06-10 09:40 | Outpatient (CLI) | payer MEDICARE, OTHER | END 2022-06-10 23:59 | disposition home or self-care (01) | LOC: MSC 09:40 | PROVIDERS: ATTEND Anesthesiology | DX: G89.4 Chronic pain syndrome (principal); M47.816 Spondylosis without myelopathy or radiculopathy, lumbar region; M62.830 Muscle spasm of back; M40.299 Other kyphosis, site unspecified; R10.2 Pelvic and perineal pain; Z79.891 Long term (current) use of opiate analgesic; N18.6 End stage renal disease; Z99.2 Dependence on renal dialysis; Z79.82 Long term (current) use of aspirin; T82.590S Other mechanical complication of surgically created arteriovenous fistula, sequela; Z79.899 Other long term (current) drug therapy ==

== ENCOUNTER 2022-06-10 09:55 | Outpatient (CLI) | payer MEDICARE, OTHER ==
[2022-06-10 12:08] LABS: BASOPHILS % (AUTO) 0.3 % (0.0-2.0); EOSINOPHILS % (AUTO) 1.9 % (0.0-6.0); HEMATOCRIT 34 % (33-45); LYMPHOCYTES # (AUTO) 0.8 K/uL (0.8-4.8); LYMPHOCYTES % (AUTO) 21.5 % (20.0-44.0); MEAN CORPUSCULAR HGB CONC 32 g/dl (31.0-36.0); MEAN CORPUSCULAR VOLUME 95 fL (82-100); MONOCYTES # (AUTO) 0.3 K/uL (0.1-1.30); MONOCYTES % (AUTO) 8.8 % (2.0-12.0); NEUTROPHILS # (AUTO) 2.5 K/uL (1.8-8.9); NEUTROPHILS % (AUTO) 67.5 % (43.0-81.0); PLATELET COUNT (AUTO) 138 K/uL (150-450); RED BLOOD CELL COUNT(AUTO) 3.57 MIL/uL (4.0-5.2); WHITE BLOOD COUNT (AUTO) 3.6 K/uL (4.3-11.0)
[2022-06-10 13:11] LABS: ALBUMIN 3.4 g/dL (3.4-5.0); BILIRUBIN,TOTAL 0.6 mg/dL (0.2-1.0); CALCIUM, SERUM 9.4 mg/dL (8.5-10.1); CREATININE 3.8 mg/dL (0.6-1.3); POTASSIUM 3.7 mmol/L (3.5-5.1)
[2022-06-10 13:55] LABS: C-REACTIVE PROTEIN 0.9 mg/dL (0.0-0.9)
== END 2022-06-10 23:59 | disposition home or self-care (01) ==
LOC: MSC 09:55
PROVIDERS: ATTEND Internal Medicine
DX: L03.115 Cellulitis of right lower limb (principal); J90 Pleural effusion, not elsewhere classified; E11.22 Type 2 diabetes mellitus with diabetic chronic kidney disease; I12.0 Hypertensive chronic kidney disease with stage 5 chronic kidney disease or end stage renal disease; N18.6 End stage renal disease; Z99.2 Dependence on renal dialysis; Z79.4 Long term (current) use of insulin; M25.462 Effusion, left knee; M25.461 Effusion, right knee; K29.70 Gastritis, unspecified, without bleeding; M54.50 Low back pain, unspecified
CPT/HCPCS: 85025; 83540; 83036; 85652; 36415; 82607; 80053; 86850; 82728; 86140; G0463

== ENCOUNTER 2022-07-15 08:54 | Outpatient (CLI) | payer MEDICARE, OTHER | END 2022-07-15 23:59 | disposition home or self-care (01) | LOC: MSC 08:54 | PROVIDERS: ATTEND Internal Medicine | DX: M25.462 Effusion, left knee (principal); M25.461 Effusion, right knee; K59.00 Constipation, unspecified; L03.115 Cellulitis of right lower limb; L81.9 Disorder of pigmentation, unspecified; J90 Pleural effusion, not elsewhere classified; E11.22 Type 2 diabetes mellitus with diabetic chronic kidney disease; I12.0 Hypertensive chronic kidney disease with stage 5 chronic kidney disease or end stage renal disease; N18.6 End stage renal disease; Z99.2 Dependence on renal dialysis; Z79.4 Long term (current) use of insulin; K29.70 Gastritis, unspecified, without bleeding; M54.50 Low back pain, unspecified ==

== ENCOUNTER 2022-07-22 12:30 | Outpatient (CLI) | payer MEDICARE, OTHER | END 2022-07-22 23:59 | disposition home or self-care (01) | LOC: MSC 12:30 | PROVIDERS: ATTEND Anesthesiology | DX: G89.4 Chronic pain syndrome (principal); M47.816 Spondylosis without myelopathy or radiculopathy, lumbar region; M62.830 Muscle spasm of back; M40.299 Other kyphosis, site unspecified; R10.2 Pelvic and perineal pain; N18.6 End stage renal disease; Z99.2 Dependence on renal dialysis; T82.590S Other mechanical complication of surgically created arteriovenous fistula, sequela; Z76.0 Encounter for issue of repeat prescription; Z79.891 Long term (current) use of opiate analgesic; Z79.899 Other long term (current) drug therapy ==

== ENCOUNTER 2022-08-26 12:30 | Outpatient (CLI) | payer MEDICARE, OTHER | END 2022-08-26 23:59 | disposition home or self-care (01) | LOC: MSC 12:30 | PROVIDERS: ATTEND Anesthesiology | DX: G89.4 Chronic pain syndrome (principal); M47.816 Spondylosis without myelopathy or radiculopathy, lumbar region; M62.830 Muscle spasm of back; M40.299 Other kyphosis, site unspecified; R10.2 Pelvic and perineal pain; Z79.891 Long term (current) use of opiate analgesic; Z79.82 Long term (current) use of aspirin; N18.9 Chronic kidney disease, unspecified; Z99.2 Dependence on renal dialysis; T82.590S Other mechanical complication of surgically created arteriovenous fistula, sequela; Z79.899 Other long term (current) drug therapy ==

== ENCOUNTER 2022-09-18 10:19 | Outpatient (CLI) | payer MEDICARE, OTHER | END 2022-09-18 23:59 | disposition home or self-care (01) | LOC: MSC 10:19 | PROVIDERS: ATTEND Internal Medicine | DX: R10.9 Unspecified abdominal pain (principal); R19.7 Diarrhea, unspecified; M25.462 Effusion, left knee; M25.461 Effusion, right knee; L81.9 Disorder of pigmentation, unspecified; J90 Pleural effusion, not elsewhere classified; E11.22 Type 2 diabetes mellitus with diabetic chronic kidney disease; I12.0 Hypertensive chronic kidney disease with stage 5 chronic kidney disease or end stage renal disease; N18.6 End stage renal disease; Z99.2 Dependence on renal dialysis; Z79.4 Long term (current) use of insulin; K29.70 Gastritis, unspecified, without bleeding; M54.50 Low back pain, unspecified ==

== ENCOUNTER 2022-09-26 16:00 | Outpatient (CLI) | payer MEDICARE, OTHER | END 2022-09-26 23:59 | disposition home or self-care (01) | LOC: MSC 16:00 | PROVIDERS: ATTEND Internal Medicine | DX: N39.0 Urinary tract infection, site not specified (principal); R10.9 Unspecified abdominal pain; R19.7 Diarrhea, unspecified; M25.462 Effusion, left knee; M25.461 Effusion, right knee; L81.9 Disorder of pigmentation, unspecified; J90 Pleural effusion, not elsewhere classified; E11.22 Type 2 diabetes mellitus with diabetic chronic kidney disease; I12.0 Hypertensive chronic kidney disease with stage 5 chronic kidney disease or end stage renal disease; N18.6 End stage renal disease; Z99.2 Dependence on renal dialysis; Z79.4 Long term (current) use of insulin; K29.70 Gastritis, unspecified, without bleeding; M54.50 Low back pain, unspecified ==

== ENCOUNTER 2022-10-16 10:15 | Outpatient (CLI) | payer MEDICARE, OTHER | END 2022-10-16 23:59 | disposition home or self-care (01) | LOC: MSC 10:15 | PROVIDERS: ATTEND Internal Medicine | DX: M25.462 Effusion, left knee (principal); M25.461 Effusion, right knee; G89.4 Chronic pain syndrome; M54.50 Low back pain, unspecified; R10.9 Unspecified abdominal pain; R19.7 Diarrhea, unspecified; K29.70 Gastritis, unspecified, without bleeding; N39.0 Urinary tract infection, site not specified; L81.9 Disorder of pigmentation, unspecified; J90 Pleural effusion, not elsewhere classified; E11.22 Type 2 diabetes mellitus with diabetic chronic kidney disease; I12.0 Hypertensive chronic kidney disease with stage 5 chronic kidney disease or end stage renal disease; N18.6 End stage renal disease; Z99.2 Dependence on renal dialysis; Z79.4 Long term (current) use of insulin ==

== ENCOUNTER 2022-10-28 12:20 | Outpatient (CLI) | payer MEDICARE, OTHER ==
[~2022-10-28 12:20] MED LIST changes: +GELATIN SPONGE,ABSORBABLE 1 EA SPONGE TP ONE; +GELATIN SPONGE,ABSORBABLE 1 SPONGE SPONGE TP ONE
== END 2022-10-28 23:59 | disposition home or self-care (01) ==
LOC: MSC 12:20
PROVIDERS: ATTEND Anesthesiology
DX: G89.4 Chronic pain syndrome (principal); M47.816 Spondylosis without myelopathy or radiculopathy, lumbar region; M62.830 Muscle spasm of back; M40.299 Other kyphosis, site unspecified; R10.2 Pelvic and perineal pain; Z79.891 Long term (current) use of opiate analgesic; N18.6 End stage renal disease; Z99.2 Dependence on renal dialysis; T82.590S Other mechanical complication of surgically created arteriovenous fistula, sequela; Z79.899 Other long term (current) drug therapy

== ENCOUNTER → 2022-10-28 | Outpatient (CLI) | payer MEDICARE, OTHER | END | disposition home or self-care (01) | LOC: MSC 15:00 | PROVIDERS: ATTEND Internal Medicine | DX: K59.00 Constipation, unspecified (principal); R10.9 Unspecified abdominal pain; R19.7 Diarrhea, unspecified; K29.70 Gastritis, unspecified, without bleeding; M25.462 Effusion, left knee; G89.4 Chronic pain syndrome; M54.50 Low back pain, unspecified; N39.0 Urinary tract infection, site not specified; L81.9 Disorder of pigmentation, unspecified; J90 Pleural effusion, not elsewhere classified; E11.22 Type 2 diabetes mellitus with diabetic chronic kidney disease; I12.0 Hypertensive chronic kidney disease with stage 5 chronic kidney disease or end stage renal disease; N18.6 End stage renal disease; Z99.2 Dependence on renal dialysis; Z79.4 Long term (current) use of insulin ==

== ENCOUNTER 2022-11-25 12:15 | Outpatient (CLI) | payer MEDICARE, OTHER ==
[~2022-11-25 12:15] MED LIST changes: -GELATIN SPONGE,ABSORBABLE 1 EA SPONGE TP ONE; -GELATIN SPONGE,ABSORBABLE 1 SPONGE SPONGE TP ONE
== END 2022-11-25 23:59 | disposition home or self-care (01) ==
LOC: MSC 12:15
PROVIDERS: ATTEND Anesthesiology
DX: G89.4 Chronic pain syndrome (principal); M47.816 Spondylosis without myelopathy or radiculopathy, lumbar region; M62.830 Muscle spasm of back; M40.299 Other kyphosis, site unspecified; R10.2 Pelvic and perineal pain; Z79.891 Long term (current) use of opiate analgesic; N18.6 End stage renal disease; Z99.2 Dependence on renal dialysis; T82.590S Other mechanical complication of surgically created arteriovenous fistula, sequela; Z79.899 Other long term (current) drug therapy

== ENCOUNTER 2022-11-25 14:00 | Outpatient (CLI) | payer MEDICARE, OTHER | END 2022-11-25 23:59 | disposition home or self-care (01) | LOC: MSC 14:00 | PROVIDERS: ATTEND Internal Medicine | DX: N39.0 Urinary tract infection, site not specified (principal); K59.00 Constipation, unspecified; R10.9 Unspecified abdominal pain; R19.7 Diarrhea, unspecified; K29.70 Gastritis, unspecified, without bleeding; M25.462 Effusion, left knee; G89.4 Chronic pain syndrome; M54.50 Low back pain, unspecified; L81.9 Disorder of pigmentation, unspecified; J90 Pleural effusion, not elsewhere classified; E11.22 Type 2 diabetes mellitus with diabetic chronic kidney disease; I12.0 Hypertensive chronic kidney disease with stage 5 chronic kidney disease or end stage renal disease; N18.6 End stage renal disease; Z99.2 Dependence on renal dialysis; Z79.4 Long term (current) use of insulin ==

== ENCOUNTER → 2022-12-04 | Outpatient (CLI) | payer MEDICARE, OTHER | END | disposition home or self-care (01) | LOC: MSC 14:30 | PROVIDERS: ATTEND Internal Medicine | DX: N39.0 Urinary tract infection, site not specified (principal); B96.20 Unspecified Escherichia coli [E. coli] as the cause of diseases classified elsewhere; K59.00 Constipation, unspecified; E11.22 Type 2 diabetes mellitus with diabetic chronic kidney disease; I12.0 Hypertensive chronic kidney disease with stage 5 chronic kidney disease or end stage renal disease; N18.6 End stage renal disease; Z99.2 Dependence on renal dialysis; Z79.4 Long term (current) use of insulin; M25.462 Effusion, left knee; M25.461 Effusion, right knee; G89.4 Chronic pain syndrome; M54.50 Low back pain, unspecified; R10.9 Unspecified abdominal pain; R19.7 Diarrhea, unspecified; K29.70 Gastritis, unspecified, without bleeding; L81.9 Disorder of pigmentation, unspecified; J90 Pleural effusion, not elsewhere classified ==

== ENCOUNTER 2022-12-23 12:08 | Outpatient (CLI) | payer MEDICARE, OTHER | END 2022-12-23 23:59 | disposition home or self-care (01) | LOC: MSC 12:08 | PROVIDERS: ATTEND Anesthesiology | DX: G89.4 Chronic pain syndrome (principal); M47.816 Spondylosis without myelopathy or radiculopathy, lumbar region; M62.830 Muscle spasm of back; M40.299 Other kyphosis, site unspecified; M54.2 Cervicalgia; R10.2 Pelvic and perineal pain; Z79.891 Long term (current) use of opiate analgesic; N18.6 End stage renal disease; Z99.2 Dependence on renal dialysis; T82.590S Other mechanical complication of surgically created arteriovenous fistula, sequela ==

== ENCOUNTER 2023-01-20 12:21 | Outpatient (CLI) | payer MEDICARE, OTHER | END 2023-01-20 23:59 | disposition home or self-care (01) | LOC: MSC 12:21 | PROVIDERS: ATTEND Anesthesiology | DX: G89.4 Chronic pain syndrome (principal); M47.816 Spondylosis without myelopathy or radiculopathy, lumbar region; M62.830 Muscle spasm of back; M40.299 Other kyphosis, site unspecified; R10.2 Pelvic and perineal pain; Z79.891 Long term (current) use of opiate analgesic; Z79.82 Long term (current) use of aspirin; N18.6 End stage renal disease; Z99.2 Dependence on renal dialysis; T82.590S Other mechanical complication of surgically created arteriovenous fistula, sequela; Z79.899 Other long term (current) drug therapy ==

== ENCOUNTER → 2023-01-20 | Outpatient (CLI) | payer MEDICARE, OTHER | END | disposition home or self-care (01) | LOC: MSC 15:45 | PROVIDERS: ATTEND Internal Medicine | DX: R30.0 Dysuria (principal); N39.0 Urinary tract infection, site not specified; K59.00 Constipation, unspecified; E11.22 Type 2 diabetes mellitus with diabetic chronic kidney disease; I12.0 Hypertensive chronic kidney disease with stage 5 chronic kidney disease or end stage renal disease; N18.6 End stage renal disease; Z99.2 Dependence on renal dialysis; Z79.4 Long term (current) use of insulin; M25.462 Effusion, left knee; M25.461 Effusion, right knee; G89.4 Chronic pain syndrome; M54.50 Low back pain, unspecified; R10.9 Unspecified abdominal pain; R19.7 Diarrhea, unspecified; K29.70 Gastritis, unspecified, without bleeding; L81.9 Disorder of pigmentation, unspecified; J90 Pleural effusion, not elsewhere classified ==

== ENCOUNTER 2023-03-17 08:58 | Outpatient (CLI) | payer MEDICARE, OTHER | END 2023-03-17 23:59 | disposition home or self-care (01) | LOC: MSC 08:58 | PROVIDERS: ATTEND Anesthesiology | DX: G89.4 Chronic pain syndrome (principal); M47.816 Spondylosis without myelopathy or radiculopathy, lumbar region; M62.830 Muscle spasm of back; M40.299 Other kyphosis, site unspecified; R10.2 Pelvic and perineal pain; Z79.891 Long term (current) use of opiate analgesic; N18.6 End stage renal disease; Z99.2 Dependence on renal dialysis; Z79.899 Other long term (current) drug therapy ==

== ENCOUNTER 2023-05-26 12:15 | Outpatient (CLI) | payer MEDICARE, OTHER | END 2023-05-26 23:59 | disposition home or self-care (01) | LOC: MSC 12:15 | PROVIDERS: ATTEND Anesthesiology | DX: M25.561 Pain in right knee (principal); M25.562 Pain in left knee; G89.4 Chronic pain syndrome; M47.816 Spondylosis without myelopathy or radiculopathy, lumbar region; M62.830 Muscle spasm of back; M40.299 Other kyphosis, site unspecified; R10.2 Pelvic and perineal pain; Z79.899 Other long term (current) drug therapy; N18.6 End stage renal disease; Z99.2 Dependence on renal dialysis; I50.9 Heart failure, unspecified; I25.10 Atherosclerotic heart disease of native coronary artery without angina pectoris; Z79.891 Long term (current) use of opiate analgesic ==

== ENCOUNTER 2023-06-07 12:50 | Inpatient (IN) | payer MEDICARE, OTHER ==
[~2023-06-07] VITALS: Ht 165.1 cm; Wt 62.1 kg
[2023-06-07] MEDS ORDERED: ACETAMINOPHEN ES 500 MG TABLET ONE (13:58)
[2023-06-07] MEDS ORDERED: ACETAMINOPHEN ES 500 MG TABLET PO ONE (14:00)
[2023-06-07 14:30] LABS: BASOPHILS % (AUTO) 0.9 % (0.0-2.0); EOSINOPHILS # (AUTO) 0.1 K/uL (0.0-0.7); HEMATOCRIT 36 % (33-45); HEMOGLOBIN 11.9 g/dL (11.5-14.8); LYMPHOCYTES # (AUTO) 0.6 K/uL (0.8-4.8); LYMPHOCYTES % (AUTO) 16.3 % (20.0-44.0); MEAN CORPUSCULAR HEMOGLOBIN 31 PG (26.0-33.0); MEAN CORPUSCULAR HGB CONC 33 g/dl (31.0-36.0); MEAN CORPUSCULAR VOLUME 94 fL (82-100); MONOCYTES # (AUTO) 0.2 K/uL (0.1-1.30); MONOCYTES % (AUTO) 4.3 % (2.0-12.0); NEUTROPHILS # (AUTO) 2.9 K/uL (1.8-8.9); NEUTROPHILS % (AUTO) 75.5 % (43.0-81.0); PLATELET COUNT (AUTO) 127 K/uL (150-450); RED BLOOD CELL COUNT(AUTO) 3.85 MIL/uL (4.0-5.2); RED CELL DISTRIBUTION WIDTH 13.7 % (11.5-15.0); WHITE BLOOD COUNT (AUTO) 3.9 K/uL (4.3-11.0)
[2023-06-07] MEDS ORDERED: MORPHINE SULFATE INJ 2 MG/ML DISP.SYRIN IV ONE ×2 (14:30→16:30)
[2023-06-07] MEDS ORDERED: LIDOCAINE 1%-EPI 1:100,000 20 ML VIAL ONE (14:41)
[2023-06-07] MEDS ORDERED: MORPHINE SULFATE INJ 4 MG/ML DISP.SYRIN ONE ×2 (14:43→16:47)
[2023-06-07] MEDS ORDERED: NORT50CA PO (14:47)
[2023-06-07] MEDS ORDERED: DOCU100C58 PO (14:47)
[2023-06-07] MEDS ORDERED: LOSA50TA39 PO (14:47)
[2023-06-07] MEDS ORDERED: SEVE2.4P PO (14:47)
[2023-06-07] MEDS ORDERED: LATA2.5D15 EACHEYE (14:47)
[2023-06-07] MEDS ORDERED: CARV6.252 PO (14:47)
[2023-06-07] MEDS ORDERED: MELO-105 PO (14:47)
[2023-06-07] MEDS ORDERED: DORZ10DR10 EACHEYE (14:47)
[2023-06-07] MEDS ORDERED: MINO2.5T PO (14:47)
[2023-06-07] MEDS ORDERED: CLON0.2T PO (14:47)
[2023-06-07 14:48] LABS: CALCIUM, SERUM 9.9 mg/dL (8.5-10.1); CREATININE 5.3 mg/dL (0.6-1.3); POTASSIUM 4.9 mmol/L (3.5-5.1)
[2023-06-07] MEDS ORDERED: INSU100I26 SQ (14:48)
[2023-06-07 14:54] LABS: ALBUMIN 3.5 g/dL (3.4-5.0); BILIRUBIN,DIRECT 0.2 mg/dL (0.0-0.2); BILIRUBIN,TOTAL 0.5 mg/dL (0.2-1.0); TOTAL PROTEIN, SERUM 8.3 g/dL (6.4-8.2)
[2023-06-07] MEDS ORDERED: OXYC1TAB12 PO (14:59)
[2023-06-07] MEDS ORDERED: LIDOCAINE 1%-EPI 1:200,000 SDV 10 ML VIAL IJ ONE (16:30)
[2023-06-07] MEDS ORDERED: HYDROCODONE/APAP 10/325MG TABLET PO PRN (17:00)
[2023-06-07] MEDS ORDERED: ONDANSETRON HCL/PF 4 MG/2 ML VIAL IVP PRN (17:00)
[2023-06-07] MEDS ORDERED: MAG HYDROX/AL HYDROX/SIMETH 30 ML UDC PO PRN (17:00)
[2023-06-07] MEDS ORDERED: Z GUARD REMEDY 4 OZ OINT TP PRN (17:00)
[2023-06-07] MEDS ORDERED: ACETAMINOPHEN 325 MG TABLET PO PRN ×2 (17:00)
[2023-06-07] MEDS ORDERED: HYDROCODONE/APAP 5/325MG TABLET PO PRN (17:00)
[2023-06-07] MEDS ORDERED: MAGNESIUM HYDROXIDE 30 ML UDC PO PRN (17:00)
[2023-06-07] MEDS ORDERED: CLONIDINE HCL 0.1 MG TABLET PO PRN (17:30)
[2023-06-07] MEDS: DOCUSATE SODIUM 100 MG CAPSULE PO SCH (18:31)
[2023-06-07] MEDS: SEVELAMER CARBONATE 800 MG TABLET PO SCH (18:31)
[2023-06-07] MEDS: NORTRIPTYLINE HCL 25 MG CAPSULE PO SCH (18:31)
[2023-06-07] MEDS: CARVEDILOL 6.25 MG TABLET PO SCH (18:32)
[2023-06-07] MEDS: FUROSEMIDE 40 MG TABLET PO SCH (18:32)
[2023-06-07] MEDS: NIFEDIPINE XL 60 MG TAB.ER.24 PO SCH (18:33)
[2023-06-07] MEDS: DORZOLAMIDE OPTH 2% 10 ML BOTTLE EACHEYE SCH (18:35)
[2023-06-07] MEDS: MINOXIDIL (2.5MG) 2.5 MG TABLET PO SCH (18:35)
[2023-06-07 18:51] LABS: PROTEIN, BODY FLUID 4.6 G/DL
[2023-06-07 19:00] VITALS: BP 139/74; TEMP 98.1; O2SAT 100
[2023-06-07 19:14] LABS: APPEARANCE,SPUN,BODY FLUID CLOUDY (CLEAR); TOTAL VOLUME,BODY FLUID 120 mL; WBC, BODY FLUID 552 /cu. mm. (0-200)
[2023-06-07 20:59] LABS: POLYNUCLEAR, BODY FLUID 13 % (0-25)
[2023-06-07 21:00] LABS: MONOCYTES,BODY FLUID 5 %
[2023-06-07] MEDS: oxyCODONE/APAP (5/325 MG) 1 UDTAB TABLET PO PRN (21:22)
[2023-06-07 22:22] VITALS: BP 147/64; TEMP 98.5; O2SAT 100
[2023-06-08 06:57] LABS: BASOPHILS % (AUTO) 0.2 % (0.0-2.0); EOSINOPHILS # (AUTO) 0.1 K/uL (0.0-0.7); EOSINOPHILS % (AUTO) 1.7 % (0.0-6.0); HEMATOCRIT 33 % (33-45); LYMPHOCYTES # (AUTO) 1.4 K/uL (0.8-4.8); LYMPHOCYTES % (AUTO) 39.9 % (20.0-44.0); MEAN CORPUSCULAR HEMOGLOBIN 31 PG (26.0-33.0); MEAN CORPUSCULAR HGB CONC 33 g/dl (31.0-36.0); MEAN CORPUSCULAR VOLUME 95 fL (82-100); MONOCYTES # (AUTO) 0.3 K/uL (0.1-1.30); MONOCYTES % (AUTO) 9.1 % (2.0-12.0); NEUTROPHILS # (AUTO) 1.7 K/uL (1.8-8.9); NEUTROPHILS % (AUTO) 49.1 % (43.0-81.0); PLATELET COUNT (AUTO) 113 K/uL (150-450); RED BLOOD CELL COUNT(AUTO) 3.53 MIL/uL (4.0-5.2); RED CELL DISTRIBUTION WIDTH 13.6 % (11.5-15.0); WHITE BLOOD COUNT (AUTO) 3.6 K/uL (4.3-11.0)
[2023-06-08 07:25] LABS: CALCIUM, SERUM 9.3 mg/dL (8.5-10.1); MAGNESIUM 2.8 mg/dL (1.8-2.4); PHOSPHORUS 6.8 mg/dL (2.5-4.9); POTASSIUM 4.6 mmol/L (3.5-5.1)
[2023-06-08 08:00] VITALS: BP 153/75; TEMP 97.6; O2SAT 98
[2023-06-08] MEDS: DOCUSATE SODIUM 100 MG CAPSULE PO SCH ×2 (09:00→17:40)
[2023-06-08] MEDS: MELOXICAM 7.5 MG TABLET PO SCH (09:55)
[2023-06-08] MEDS: SEVELAMER CARBONATE 800 MG TABLET PO SCH ×3 (09:55→17:39)
[2023-06-08] MEDS: CARVEDILOL 6.25 MG TABLET PO SCH ×2 (09:57→17:00)
[2023-06-08] MEDS: LOSARTAN POTASSIUM 50 MG TABLET PO SCH (09:58)
[2023-06-08] MEDS: NIFEDIPINE XL 60 MG TAB.ER.24 PO SCH ×2 (09:58→17:00)
[2023-06-08] MEDS: NORTRIPTYLINE HCL 25 MG CAPSULE PO SCH ×2 (10:00→17:00)
[2023-06-08] MEDS: FUROSEMIDE 40 MG TABLET PO SCH ×2 (10:02→17:40)
[2023-06-08] MEDS: MINOXIDIL (2.5MG) 2.5 MG TABLET PO SCH ×2 (10:03→17:00)
[2023-06-08] MEDS: oxyCODONE/APAP (5/325 MG) 1 UDTAB TABLET PO PRN ×2 (10:07→19:11)
[2023-06-08] MEDS: DORZOLAMIDE OPTH 2% 10 ML BOTTLE EACHEYE SCH ×2 (10:11→17:42)
[2023-06-08 16:00] VITALS: BP 101/69; TEMP 98.1; O2SAT 98
[2023-06-08] MEDS: hydrALAZINE HCL 50 MG TABLET PO SCH (17:42)
[2023-06-08 20:00] VITALS: BP 103/57; TEMP 98.2; O2SAT 97
[2023-06-09 06:54] LABS: BASOPHILS % (AUTO) 0.3 % (0.0-2.0); EOSINOPHILS % (AUTO) 1.4 % (0.0-6.0); HEMATOCRIT 35 % (33-45); HEMOGLOBIN 11.2 g/dL (11.5-14.8); LYMPHOCYTES % (AUTO) 32.4 % (20.0-44.0); MEAN CORPUSCULAR HEMOGLOBIN 30 PG (26.0-33.0); MEAN CORPUSCULAR HGB CONC 32 g/dl (31.0-36.0); MEAN CORPUSCULAR VOLUME 94 fL (82-100); MONOCYTES # (AUTO) 0.3 K/uL (0.1-1.30); MONOCYTES % (AUTO) 8.6 % (2.0-12.0); NEUTROPHILS # (AUTO) 1.8 K/uL (1.8-8.9); NEUTROPHILS % (AUTO) 57.3 % (43.0-81.0); PLATELET COUNT (AUTO) 119 K/uL (150-450); RED BLOOD CELL COUNT(AUTO) 3.69 MIL/uL (4.0-5.2); RED CELL DISTRIBUTION WIDTH 13.7 % (11.5-15.0); WHITE BLOOD COUNT (AUTO) 3.2 K/uL (4.3-11.0)
[2023-06-09 07:27] LABS: BILIRUBIN,TOTAL 0.3 mg/dL (0.2-1.0); CALCIUM, SERUM 9.5 mg/dL (8.5-10.1); CREATININE 3.9 mg/dL (0.6-1.3); MAGNESIUM 2.3 mg/dL (1.8-2.4); PHOSPHORUS 4.5 mg/dL (2.5-4.9); POTASSIUM 4.1 mmol/L (3.5-5.1); TOTAL PROTEIN, SERUM 7.3 g/dL (6.4-8.2)
[2023-06-09 08:00] VITALS: BP 109/61; TEMP 96.8; O2SAT 99
[2023-06-09] MEDS: SEVELAMER CARBONATE 800 MG TABLET PO SCH ×2 (08:13→13:00)
[2023-06-09] MEDS: oxyCODONE/APAP (5/325 MG) 1 UDTAB TABLET PO PRN (08:14)
[2023-06-09] MEDS: hydrALAZINE HCL 50 MG TABLET PO SCH ×2 (08:34→13:00)
[2023-06-09] MEDS: LOSARTAN POTASSIUM 50 MG TABLET PO SCH (08:35)
[2023-06-09] MEDS: CARVEDILOL 6.25 MG TABLET PO SCH (08:35)
[2023-06-09] MEDS: NIFEDIPINE XL 60 MG TAB.ER.24 PO SCH (08:36)
[2023-06-09] MEDS: DORZOLAMIDE OPTH 2% 10 ML BOTTLE EACHEYE SCH (08:55)
[2023-06-09] MEDS: MELOXICAM 7.5 MG TABLET PO SCH (08:55)
[2023-06-09 08:56] VITALS: BP 109/61
[2023-06-09] MEDS: DOCUSATE SODIUM 100 MG CAPSULE PO SCH (08:56)
[2023-06-09] MEDS: FUROSEMIDE 40 MG TABLET PO SCH (08:56)
[2023-06-09] MEDS: MINOXIDIL (2.5MG) 2.5 MG TABLET PO SCH (08:56)
[2023-06-09] MEDS: NORTRIPTYLINE HCL 25 MG CAPSULE PO SCH ×2 (08:58→09:00)
== END 2023-06-09 11:00 | disposition home health service (06) | DRG 564 ==
LOC: ER 13:06 → MED 17:10
PROVIDERS: ADMIT Internal Medicine; ATTEND Internal Medicine
PROC: 0S9C3ZZ Drainage of Right Knee Joint, Percutaneous Approach (ICD-10-PCS; principal; 2023-06-07)
PROC: 0S9D3ZZ Drainage of Left Knee Joint, Percutaneous Approach (ICD-10-PCS; 2023-06-07)
DX: M25.461 Effusion, right knee (principal); N18.6 End stage renal disease; I12.0 Hypertensive chronic kidney disease with stage 5 chronic kidney disease or end stage renal disease; E87.1 Hypo-osmolality and hyponatremia; M25.462 Effusion, left knee; M81.0 Age-related osteoporosis without current pathological fracture; I25.10 Atherosclerotic heart disease of native coronary artery without angina pectoris; E11.22 Type 2 diabetes mellitus with diabetic chronic kidney disease; M19.90 Unspecified osteoarthritis, unspecified site; D64.9 Anemia, unspecified; G62.9 Polyneuropathy, unspecified; G89.4 Chronic pain syndrome; M17.0 Bilateral primary osteoarthritis of knee; Z88.0 Allergy status to penicillin; Z87.440 Personal history of urinary (tract) infections; Z79.891 Long term (current) use of opiate analgesic; Z79.4 Long term (current) use of insulin; Z99.2 Dependence on renal dialysis; E83.9 Disorder of mineral metabolism, unspecified; E11.51 Type 2 diabetes mellitus with diabetic peripheral angiopathy without gangrene
CPT/HCPCS: 36415; 73564-TC; 80048-TC; 80053-TC; 80076-TC; 83735-TC; 84100-TC; 85025-TC; 85652-TC; 86140-TC; 89051-TC; 97110-TC; 97530-TC; A6403; G0378; J2270; J3490

== ENCOUNTER → 2023-06-12 | Outpatient (CLI) | payer MEDICARE, OTHER ==
[~2023-06-12] MED LIST changes: -ASPI-1169 PO; +CARV6.252 PO; +CLON0.2T PO; +DOCU100C58 PO; +DORZ10DR10 EACHEYE; -DORZ10DR13 EACHEYE; -GLIM1TAB PO; -HYDR-4354 PO; +INSU100I26 SQ; +LATA2.5D15 EACHEYE; +LOSA50TA39 PO; +MELO-105 PO; -METO25TA20 PO; +MINO2.5T PO; +NORT50CA PO; +OXYC1TAB12 PO; +SEVE2.4P PO; -SEVE800T8 PO
== END | disposition home or self-care (01) ==
LOC: MSC 14:45
PROVIDERS: ATTEND Internal Medicine
DX: M25.462 Effusion, left knee (principal); M25.461 Effusion, right knee; K59.00 Constipation, unspecified; E11.22 Type 2 diabetes mellitus with diabetic chronic kidney disease; I12.0 Hypertensive chronic kidney disease with stage 5 chronic kidney disease or end stage renal disease; N18.6 End stage renal disease; Z99.2 Dependence on renal dialysis; Z79.4 Long term (current) use of insulin; G89.4 Chronic pain syndrome; M54.50 Low back pain, unspecified; R10.9 Unspecified abdominal pain; R19.7 Diarrhea, unspecified; K29.70 Gastritis, unspecified, without bleeding; L81.9 Disorder of pigmentation, unspecified; J90 Pleural effusion, not elsewhere classified; Z87.440 Personal history of urinary (tract) infections

== ENCOUNTER 2024-06-07 12:04 | Outpatient (CLI) | payer MEDICARE, OTHER | END 2024-06-07 23:59 | disposition home or self-care (01) | LOC: MSC 12:04 | PROVIDERS: ATTEND Anesthesiology | DX: G89.4 Chronic pain syndrome (principal); M25.562 Pain in left knee; M25.561 Pain in right knee; M47.816 Spondylosis without myelopathy or radiculopathy, lumbar region; R10.2 Pelvic and perineal pain; Z79.891 Long term (current) use of opiate analgesic; M62.830 Muscle spasm of back; M40.299 Other kyphosis, site unspecified; N18.6 End stage renal disease; Z99.2 Dependence on renal dialysis; T82.590S Other mechanical complication of surgically created arteriovenous fistula, sequela ==